=== PATIENT | male | born 1995 | race Caucasian/White ===

== ENCOUNTER 2022-04-10 07:58 | Emergency (ER) | payer OTHER ==
[2022-04-10] MEDS ORDERED: Sodium Chloride 0.9% 1,000 ML IV ONE (08:20)
[2022-04-10] MEDS ORDERED: HYDROmorphone 0.5 MG/0.5 ML Syringe IVPUSH ONE ×2 (08:20→11:26)
[2022-04-10] MEDS ORDERED: Sodium Chloride 0.9% 10 ML Syringe FLUSH PRN (08:20)
[2022-04-10] MEDS ORDERED: Ondansetron 4 MG/2 ML SDV IVPUSH ONE (08:20)
[2022-04-10] MEDS ORDERED: Iopamidol 612 MG/ML 100 ML Bottle IVPUSH ONE (08:30)
[2022-04-10 09:02] LABS: ANION GAP 15.1 mmol/L (5-15)
[2022-04-11 12:12] LABS: C.TRACHOMATIS BY TMA Negative (Negative); N.GONORRHOEAE BY TMA Negative (Negative)
== END 2022-04-10 11:57 | disposition home or self-care (01) ==
LOC: VM.ED 07:58
DX: K35.20 Acute appendicitis with generalized peritonitis, without abscess (principal)
CPT/HCPCS: 74177; 80053; 81003; 82550; 85025; 87491; 87563; 87591; 96361; 96374; 96375; 96376; 99283; 99284-25; J1170; J2405; J7030; Q9967